=== PATIENT | female | born 1950 | race Caucasian/White ===

== ENCOUNTER → 2016-10-25 | Outpatient (CLI) | payer BC ==
[~2016-10-25] MED LIST: ASPI-435; CHOL100027 PO; FLUT1POW8; LISI5TAB3 PO; LORA0.5T12; LORA10CA2 PO; MULTTAB58 PO; OMEG10007 PO; TRIA0.1C20; VALA1TAB PO
--- NOTE | 2016-10-26 07:41 | MAMMOGRAPHY REPORT ---
BILATERAL DIGITAL SCREENING MAMMOGRAM WITH CAD: 10/25/2016 CLINICAL HISTORY: Routine screening. Patient has no complaints. TECHNIQUE: Bilateral CC and MLO views were obtained. Current study was also evaluated with a Comput er Aided Detection (CAD) system. COMPARISON: Comparison is made to exams dated: 09/24/2015 mammogram, 09/17/2014 mammogram, 08/22/2013 ma mmogram, 08/17/2012 mammogram, 08/17/2011 mammogram, and 08/11/2010 mammogram - [facility] BREAST COMPOSITION: The tissue of both breasts is almost entirely fatty. FINDINGS: There are benign rim calcification/oil cysts in both breasts. No suspicious mass, architec tural distortion or cluster of microcalcifications is seen. IMPRESSION: ACR BI-RADS CATEGORY 1: NEGATIVE There is no mammographic evidence of malignancy. A 1 year screening mammogram is recommended. The pa tient will receive written notification of the results. Approximately 10% of breast cancers are not detected with mammography. A negative mammographic report should not delay biopsy if a clinically suggestive mass is present. Nanette Goldman M.D. ay/:10/25/2016 16:01:20 Can Labeler: Sybil CONNOLLY(Saida)(Kelly)(BD), [facility] letter sent: Normal 1/2 BI-RADS Code: ACR BI-RADS Category 1: Negative
== END | disposition home or self-care (01) ==
LOC: C.MAMM 14:32
PROVIDERS: ATTEND Obstetrics & Gynecology
DX: Z12.31 Encounter for screening mammogram for malignant neoplasm of breast (principal)

== ENCOUNTER → 2016-10-26 | Outpatient (CLI) | payer BC | END | disposition home or self-care (01) | LOC: C.PAPS 11:25 | PROVIDERS: ATTEND Obstetrics & Gynecology | DX: Z01.419 Encounter for gynecological examination (general) (routine) without abnormal findings (principal); N95.2 Postmenopausal atrophic vaginitis ==

== ENCOUNTER → 2017-10-27 | Outpatient (CLI) | payer BC | END | disposition home or self-care (01) | LOC: C.PAPS 11:24 | PROVIDERS: ATTEND Obstetrics & Gynecology | DX: N95.2 Postmenopausal atrophic vaginitis (principal) ==

== ENCOUNTER → 2017-11-18 | Outpatient (CLI) | payer OTHER ==
--- NOTE | 2017-11-21 13:10 | MAMMOGRAPHY REPORT ---
BILATERAL DIGITAL SCREENING MAMMOGRAM TOMOSYNTHESIS WITH CAD: 11/18/2017 CLINICAL HISTORY: Routine screening. Patient has no complaints. TECHNIQUE: The study was acquired using full field digital technology and interpreted from soft copy. Breast tomosynthesis in addition to standard 2D mammography was performed. Current study was also ev aluated with a Computer Aided Detection (CAD) system. COMPARISON: Comparison is made to exams dated: 10/25/2016 mammogram, 09/24/2015 mammogram, 09/17/2014 ma mmogram, 08/17/2012 mammogram, 08/17/2011 mammogram, and 08/11/2010 mammogram - [facility] BREAST COMPOSITION: The tissue of both breasts is almost entirely fatty. FINDINGS: No suspicious masses, calcifications, or areas of architectural distortion are noted in either breast . There has been no significant interval change compared to prior exams. Benign rim calcifications a nd small oil cysts are again noted bilaterally. IMPRESSION: ACR BI-RADS CATEGORY 2: BENIGN There is no mammographic evidence of malignancy. A 1 year screening mammogram is recommended.( [id number]) The patient will receive written notification of the results. Some breast cancers are not detected with mammography. A negative mammographic report should not sylvester y biopsy if a clinically suggestive mass is present. Bree Campos M.D. ah/:11/18/2017 15:21:21 Jail Manager: RT Aviva(Saida)(M), [facility] letter sent: Normal 1/2 BI-RADS Code: ACR BI-RADS Category 2: Benign
== END | disposition home or self-care (01) ==
LOC: C.MAMM 14:49
PROVIDERS: ATTEND Obstetrics & Gynecology
DX: Z12.31 Encounter for screening mammogram for malignant neoplasm of breast (principal)